=== PATIENT | female | born 1965 | race Caucasian/White ===

== ENCOUNTER 2020-08-20 09:37 | Outpatient (CLI) | payer OTHER, SELFPAY ==
--- NOTE | 2020-08-20 09:39 | ECG_ITS ---
Measurements Intervals [place] Rate: 56 P: 44 HI: 168 QRS: -29 QRSD: 97 T: 29 QT: 392 QTc: 380 Interpretive Statements SINUS BRADYCARDIA LOW QRS VOLTAGE IN PRECORDIAL LEADS POOR R WAVE PROGRESSION, ANTERIOR LEADS BORDERLINE ECG Electronically Signed On 08-20-2020 9:58:46 CDT by Tc Claudio D.O.
[2020-08-20 10:11] LABS: Hematocrit 40.8 % (37.0-47.0); Hemoglobin 13.6 g/dL (12.0-15.0)
== END 2020-08-20 09:38 | disposition home or self-care (01) ==
LOC: ANHSURGERY 09:39
PROVIDERS: Anesthesiology; Visit Provider Surgery Plastic and Reconstructive Surgery
DX: Z01.812 Encounter for preprocedural laboratory examination (principal); Z01.810 Encounter for preprocedural cardiovascular examination; L57.4 Cutis laxa senilis; R00.1 Bradycardia, unspecified
CPT/HCPCS: 36415; 85014; 85018; 93005

== ENCOUNTER 2020-08-23 00:40 | Outpatient (CLI) | payer OTHER, SELFPAY ==
[2020-08-23 18:59] LABS: SARS-CoV-2 RNA PCR Negative
== END 2020-08-23 00:41 | disposition home or self-care (01) ==
LOC: ANHCOVIDDT 00:40
PROVIDERS: Visit Provider Surgery Plastic and Reconstructive Surgery
DX: Z01.812 Encounter for preprocedural laboratory examination (principal); Z20.828 Contact with and (suspected) exposure to other viral communicable diseases; L57.4 Cutis laxa senilis
CPT/HCPCS: 87635; C9803; U0003

== ENCOUNTER 2020-08-26 01:16 | Day surgery (SDC) | payer OTHER, SELFPAY ==
[2020-08-14 18:45] VITALS: BMI 30.1
[2020-08-26] VITALS (13 sets, daily range): BP systolic 101–117; BP diastolic 49–68; PULSE 53–88; RESP 13–18; TEMP 36.2–36.7; O2SAT 93–99
[2020-08-26] MEDS: LACTATED RINGERS 1,000 ML 30 ML IV CONT ×2 (08:20→15:00)
[2020-08-26 08:49] LABS: Urine Cotinine NEGATIVE
--- NOTE | 2020-08-26 10:07 | WPDANESEPPF ---
Anes - Initial Pre Proc Eval Procedure: Operation Date: 08/26/20 10:30 Proposed Procedures p Face Lift, Rhytidectomy - Lyndon Bueno MD s Cervicoplasty, Neck Lift - Lyndon Bueno MD Date/Time: 08/26/20 10:07 Surgeon: Lyndon Bueno MD Pre Op Diagnosis: Skin Laxity Patient Data Age: 55 Gender: F Height: 5 ft 3 in Weight: 79.7 kg Allergies Allergy/AdvReac Type Severity Reaction Status Date / Time No Known Allergies Allergy Unverified 08/26/20 08:58 Home Medications Medication Instructions Recorded Confirmed Type docusate sodium 100 mg capsule 100 mg PO DAILY #14 cap 08/11/20 08/26/20 Rx hydrocodone 5 mg-acetaminophen 325 1 tablet PO Q6H PRN #15 tablet 08/11/20 08/26/20 Rx mg tablet ondansetron HCl 4 mg tablet 4 mg PO Q8H #28 tablet 08/11/20 08/26/20 Rx Laboratory Tests 08/26/20 08:21 Cotinine Negative Patient hx anesthesia problems: none Family hx anesthesia problems: none [facility] Social History Social History Smoking status: Never smoker Alcohol intake: current Living arrangements: with family Gender identity (if verbalized by the patient): Female Spiritual care concerns: No Anes - Eval Final PreProcedure Day of Procedure 08/26/20 10:07 Patient weight: obese Heart: regular rate and rhythm Lungs: clear to auscultation Airway: Mallampati scale class II Neurological: alert and oriented Last oral intake: >/= 8 hours ASA classification: III Emergent: no Anesthetic plan: proceed Anesthesia type and monitoring: general ETT and standard monitoring Informed Consent: The patient's anesthetic plan and its attendant risks and benefits were discussed with the patient/family/POA. Questions were solicited and answers provided to the satisfaction of the patient/family/POA.
--- NOTE | 2020-08-26 10:20 | WPDHPUPDATE1 ---
History and Physical Update Update Date/Time: 08/26/20 10:20 History and Physical has been reviewed, including an updated exam of the patient. There are NO changes in the patient's condition. Risks, benefits, and alternatives have been discussed and questions answered. Patient agrees to proceed with procedure.
--- NOTE | 2020-08-26 10:40 | PM.PROC ---
Procedure Note - Detailed Date of procedure: 08/26/20 Pre-op diagnosis: Skin Laxity Post-op diagnosis: same Procedure performed: Face / Neck lift Description of procedure: She was marked in the preoperative holding area with her verification. We outlined the surgical plan. Discussed we can and cannot accomplish. Went over the risks, benefits, alternatives in extensive detail. Want her to be very realistic about the risks involved as well as expectations. Made sure answered all of her questions to her satisfaction today and consent obtained. She was taken to the operating room placed supine on the operating room table. Anesthesia was provided by anesthesiology and she was prepped and draped in a standard sterile fashion. Surgical time-out was taken. Using a spinal needle I injected with a tumescent solution throughout the planned flap elevation areas. Once adequate time for hemostasis was obtained to 15 blade was used to make a submental incision. I elevated skin flaps trying to maintain a good pinch in consistency throughout. I then continued dissection down until the platysma was identified. I removed any excess sub platysmal fat making sure as very careful of contour. The platysma was fairly thick and as such trimmed the central portion and released along lower border near the hyoid bone level. I then repaired with 3-0 PDS figure of eight. A 15 blade used to make the remainder of the pre and postauricular incisions. I elevated just superficial to the SMAS until the planned undermined area was completely undermined. I then plicated the SMAS at the inferior border of the zygomatic arch based on pre-operative planning. I completed a platysmal window. 1 finger below and posterior mandibular angle I opened the platysma. Figure of 8 completed to mastoid fascia. Copiously irrigated with saline solution. The blood pressure had been allowed to elevate to 120's to verify hemostasis which was well controlled. Hemaderm was placed as extra hemostasis. Arnulfo drains were placed bilaterally postauricular and sutured into place with 3-0 Vicryl. I then redraped the skin is would be completely tension free and was trimmed as necessary. Skin was closed using 4-0 Monocryl and a combination of 5 0 chromic and 5 0 nylon. Also ashley in the hairline. Xeroform, fluffs, and face-lift tape were used for a final dressing. She tolerated well. Anesthesia: GETA Surgeon: Lyndon Bueno MD Estimated blood loss (mL): 50 Drains: Yes (Bilateral arnulfo) Packing: No Pathology: none sent Complications: No immediate complications Condition: stable Disposition: PACU
[2020-08-26] MEDS: ceFAZolin 2 GM/D5W 50 ML 2 GM/50 ML BAG IVPB (10:45)
[2020-08-26] MEDS: ONDANSETRON INJ 4 MG/2 ML VIAL IV PUSH ×2 (15:08→21:07)
[2020-08-26] MEDS: HYDROmorphone HCL INJ (*CRX) 1 MG/ML SYR 0.5 MG IV PUSH ×2 (15:25→15:38)
[2020-08-26] MEDS: LACTATED RINGERS 1,000 ML 125 ML IV CONT (16:43)
--- NOTE | 2020-08-26 17:57 | OBPPTRN ---
1626 Patient transferred to room #289 via bed. Oriented to unit, room, information board, rooming in, security measures. Patient verbalizes understanding.
[2020-08-26] MEDS: oxyCODONE/ACETAMINOPHEN (*CRX) 5-325 MG TABLET PO (21:07)
[2020-08-27 00:56] VITALS: BP 123/55; PULSE 70; RESP 15; TEMP 36.7
[2020-08-27 06:03] VITALS: BP 111/55; PULSE 77; RESP 15; TEMP 37
--- NOTE | 2020-08-27 07:23 | WPDANESPN ---
Anes - Prog Note Post-Op Date/Time: 08/27/20 07:23 Cardiovascular status: normal Respiratory status: normal Airway patency: baseline Mental status: baseline Post-Op hydration status: normal Vital Signs: Last Vital Signs Temp 37.0 C 08/27/20 06:03 Pulse 77 08/27/20 06:03 Resp 15 08/27/20 06:03 BP 111/55 L 08/27/20 06:03 Pulse Ox 98 08/26/20 18:00 Pain Score (VAS): 0 I/O: Intake & Output 08/26/20 08/26/20 08/27/20 15:59 23:59 07:59 Intake Total 50 200 450 Output Total 33 725 Balance 50 167 -275 08/26/20 08:21 Cotinine Negative Post-procedural complaints: none Patient Feedback: Patient satisfied with anesthetic care.
--- NOTE | 2020-08-27 07:47 | WPDPN ---
Progress Note: A&P Assessment and Plan (1) Encounter for cosmetic surgery: Code(s): Z41.1 - Encounter for cosmetic surgery Status: Acute Assessment and Plan: She is doing very well after face and neck lift. Will plan for discharge home. We will remove drains prior to discharge. Today we had a lengthy discussion about the care. Discussed what monitor for. Righted full list of instructions. Made sure answered all of her questions to her satisfaction. I will see her back. She will call with any questions or concerns. Time Spent With Patient Time with patient: 15 - 25 minutes Review of Systems Review of Systems: All systems reviewed & are unremarkable except as noted in HPI and below Exam Narrative: Exam Narrative: Cranial nerves 2-12 are grossly intact. PERRLA EOMI. Drains are serosanguineous with minimal output. No signs of infection. No hematoma. No seroma. No calf tenderness. Negative Homans. Const: General: comfortable, no acute distress, alert and awake; No acute distress Orientation/consciousness: oriented to person HENMT: Head: normal to inspection Ears: external ears normal General nose exam: Normal external nose present Face and sinus: normal facial exam Eyes: General: appearance normal, both eyes and all related structures Periorbital: periorbital findings normal Eyelids: eyelids normal Conjunctivae: conjunctivae normal Neck: Neck: normal visual inspection Chest: Chest palpation & inspection: normal inspection of the chest Resp: Effort & Inspection: normal respiratory effort and able to speak in complete sentences GI: Inspection: normal to inspection Neuro: General: oriented to person Psych: Appearance: grossly normal Mental Status: mental status grossly normal Objective Data Vital Signs Vital Signs: Vital Signs - 24 hr 08/26/20 08:22 08/26/20 15:00 08/26/20 15:15 Temperature 36.2 C L 36.4 C Pulse Rate 55 L 88 84 Respiratory Rate 18 16 16 Blood Pressure 110/55 L 108/56 L 117/62 Pulse Oximetry 99 93 95 08/26/20 15:30 08/26/20 15:45 08/26/20 16:00 Temperature Pulse Rate 70 64 65 Respiratory Rate 13 14 13 Blood Pressure 116/58 L 111/58 L 111/54 L Pulse Oximetry 95 98 97 08/26/20 16:15 08/26/20 16:26 08/26/20 16:45 Temperature 36.6 C Pulse Rate 68 61 65 Respiratory Rate 16 16 Blood Pressure 108/49 L 104/60 101/57 L Pulse Oximetry 96 96 96 08/26/20 17:00 08/26/20 17:30 08/26/20 18:00 Temperature Pulse Rate 60 59 L 53 L Respiratory Rate Blood Pressure 101/57 L 102/55 L 104/57 L Pulse Oximetry 96 96 98 08/26/20 19:00 08/27/20 00:56 08/27/20 06:03 Temperature 36.7 C 36.7 C 37.0 C Pulse Rate 66 70 77 Respiratory Rate 18 15 15 Blood Pressure 115/68 123/55 L 111/55 L Pulse Oximetry Intake/Output Intake/Output: Intake & Output 08/24/20 08/25/20 08/26/20 08/27/20 23:59 23:59 23:59 23:59 Intake Total 250 450 Output Total 33 725 Balance 217 -275 Meds/Results Medications: Active Medications Generic Name Dose Route Start Last Admin Trade Name Freq PRN Reason Stop Dose Admin Docusate Sodium 100 mg 08/26/20 21:00 08/27/20 07:14 Docusate Sodium 100 Mg Capsule PO Not Given Q12HR KIRIT Lactated Ringer's 1,000 mls @ 125 mls/hr 08/26/20 15:05 08/27/20 07:14 Lr - Lactated Ringers Iv IV CONT Not Given .Q8H KIRIT Morphine Sulfate 2 mg 08/26/20 15:04 Morphine Sulfate (*Crx) 2 Mg/Ml Inj IV PUSH Q2H PRN Pain Ondansetron HCl 4 mg 08/26/20 15:04 08/26/20 21:07 Ondansetron Inj 4 Mg/2 Ml Vial IV PUSH 4 mg Q6H PRN Administration Nausea Oxycodone/Acetaminophen 1 - 2 tablet 08/26/20 15:04 08/26/20 21:07 Oxycodone/Acetaminophen (*Crx) 5-325 Mg Tablet PO 1 tablet Q6H PRN Administration Pain Labs Labs: Laboratory Results - last 24 hr 08/26/20 08:21 Cotinine Negative Subjective Date/time seen: 08/27/20 07:47 She states she has
--- NOTE | 2020-08-27 07:51 | PM.DS ---
DS: Admitting Diagnosis Admitting Diagnosis Admitting Diagnosis: Skin Laxity DS: Discharge Diagnosis Discharge Diagnosis (1) Encounter for cosmetic surgery: Code(s): Z41.1 - Encounter for cosmetic surgery Status: Acute Assessment and Plan: Doing very well after face and neck lift. Will discharge home. Follow-up. DS: Summary Time Spent with Patient Time attestation: Total time spent providing and/or coordinating discharge services: 20 minutes Exam Narrative: Exam Narrative: Cranial nerves 2-12 are grossly intact. PERRLA EOMI. Drains are serosanguineous with minimal output. No signs of infection. No hematoma. No seroma. No calf tenderness. Negative Homans. Const: General: comfortable, no acute distress, alert and awake; No acute distress Orientation/consciousness: oriented to person HENMT: Head: normal to inspection Ears: external ears normal General nose exam: Normal external nose present Face and sinus: normal facial exam Eyes: General: appearance normal, both eyes and all related structures Periorbital: periorbital findings normal Eyelids: eyelids normal Conjunctivae: conjunctivae normal Neck: Neck: normal visual inspection Chest: Chest palpation & inspection: normal inspection of the chest Resp: Effort & Inspection: normal respiratory effort and able to speak in complete sentences GI: Inspection: normal to inspection Neuro: General: oriented to person Psych: Appearance: grossly normal Mental Status: mental status grossly normal DS: Data Data Completed and Pending Labs on day of discharge: Labs from last 24 hours 08/26/20 08:21 Cotinine Negative Discharge Plan Discharge Patient Disposition: Home, Self-Care Discharge Instructions: POST OPERATIVE DISCHARGE INSTRUCTIONS FOR Face / Neck Lift LYNDON BUENO M.D. [facility] [address] [place] [address] [address] [place] [address] [address] for 24 hours after anesthesia and while you are taking pain medication. Take all prescribed medication as directed Diet as tolerated. No lifting or activity that raises blood pressure for 48 hours. Regular walking / ambulation. No showering until directed to. Once you shower do not take pain medication before showering as the combination of medication and heat may cause you to feel dizzy or pass out. No pools or tubs for 2 weeks. Call with any questions or concerns. Dressing Care: May shower. Continue facelift wrap 23 hours per day. If you have any questions or concerns, please call the office . If it is after hours you will be directed to the project management consultant exchange. Shortness of breath, chest pain, or other medical emergency dial 911 / proceed to the Emergency Room. Stand Alone Forms: General Discharge Instructions Follow-up/Referrals: Lyndon Bueno MD [Physician] - Other (Next week.) Discharge Orders: Discharge Order (Routine); Ordered 08/27/20 Ordered By: Lyndon Bueno Discharge Medications: Continued ondansetron HCl [Zofran] 4 mg tablet 4 mg PO Q8H Qty: 28 RF: 0 docusate sodium [Colace] 100 mg capsule 100 mg PO DAILY Qty: 14 RF: 0 hydrocodone-acetaminophen [[place]] 5-325 mg tablet 1 tablet PO Q6H PRN (Reason: pain) Qty: 15 RF: 0
--- NOTE | 2020-08-27 08:00 | PC.NURSE ---
PT introductions made and plan of care discussed per post op plastic surgery, pain management, daily care and pending discharge to home. PT verbalized understanding of such care.
[2020-08-27 08:10] VITALS: BP 119/60; PULSE 67; RESP 18; TEMP 36.6; O2SAT 97
[2020-08-27 09:00] VITALS: PULSE 67; RESP 18; O2SAT 97
--- NOTE | 2020-08-27 10:30 | PC.NURSE ---
PT received discharge instructions per protocol and verbalized understanding of such instructions.
--- NOTE | 2020-08-27 10:50 | PC.NURSE ---
PT discharged to home ambulatory accompanied by nurse to waiting car. follow up appts confirmed
== END 2020-08-27 10:50 | disposition home or self-care (01) ==
LOC: ANHSURGERY 10:47 → ANHOB2 16:22
PROVIDERS: Visit Provider Surgery Plastic and Reconstructive Surgery
PROC: (CPT 15824; principal; 2020-08-26 10:30)
PROC: (CPT 15819; 2020-08-26 10:30)
DX: Z41.1 Encounter for cosmetic surgery (principal); L57.4 Cutis laxa senilis; E66.9 Obesity, unspecified; Z68.31 Body mass index [BMI] 31.0-31.9, adult; Z79.899 Other long term (current) drug therapy
CPT/HCPCS: 15829; 15819; 80307; 99199; A9270; J0171; J0330; J0690; J1100; J1170; J2250; J2405; J2704; J3010; J7120; Q9968